=== PATIENT | male | born 1955 | race Caucasian/White ===

== ENCOUNTER 2023-12-09 10:21 | Emergency (ER) | payer OTHER ==
[~2023-12-09] VITALS: Ht 190.5 cm; Wt 98.9 kg
[2023-12-09 11:28] VITALS: BP 110/77; O2SAT 100
== END 2023-12-09 11:35 | disposition home or self-care (01) ==
LOC: ER 10:21
DX: M79.81 Nontraumatic hematoma of soft tissue (principal); Z88.0 Allergy status to penicillin; Z88.2 Allergy status to sulfonamides
CPT/HCPCS: A4606; A4663